=== PATIENT | female | born 1965 ===

== ENCOUNTER 2020-09-25 06:58 | Day surgery (SDC) | payer BC ==
[~2020-09-25 06:58] MED LIST: Midazolam 1 MG/ML 2 ML SDV ONE; fentaNYL 100 MCG/2 ML SDV ONE
[2020-09-25] MEDS ORDERED: Midazolam 1 MG/ML 2 ML SDV IV ONE ×10 (06:59→07:57)
[2020-09-25] MEDS ORDERED: fentaNYL 100 MCG/2 ML SDV IV ONE ×5 (06:59→07:58)
[2020-09-25] MEDS ORDERED: Dextrose 5%-0.45% NaCl 1,000 ML IV SCH (07:00)
[2020-09-25] MEDS ORDERED: Midazolam 1 MG/ML 2 ML SDV ONE (07:57)
--- NOTE | 2020-09-25 11:36 | OR ---
DATE: 09/25/2020 PREOPERATIVE DIAGNOSIS: Positive Cologuard test for screening colonoscopy. POSTOPERATIVE DIAGNOSIS: Positive Cologuard test for screening colonoscopy. PROCEDURE: Total colonoscopy. ANESTHESIA: Conscious sedation with IV Versed and fentanyl. SPECIMEN: None. OPERATIVE FINDINGS: Normal colonoscopy except for some distal melanosis coli, which is of no consequence. INDICATION FOR PROCEDURE: This 55-year-old female referred by Cynthia Portillo for evaluation of need for screening colonoscopy and a positive Cologuard test. PROCEDURE IN DETAIL: After adequate preparation, a colonoscope was inserted into the rectum. This was easily passed all the way to the cecum. Confirmation of the cecum was made by visualization of the ileocecal valve and palpation in the right lower quadrant. The bowel prep was good. On withdrawal of the scope, there were no masses, polyps, bleeding sites, colitis, or diverticula. 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 No other abnormalities were noted. Air was suctioned from the colon and the scope removed. [facility] /[id number]
[2020-09-25 13:49] VITALS: BP 137/75; PULSE 79
== END 2020-09-25 09:30 | disposition home or self-care (01) ==
LOC: DL.ENDO 06:58
PROVIDERS: ATTEND Surgery
DX: K63.89 Other specified diseases of intestine (principal); Z01.812 Encounter for preprocedural laboratory examination; Z20.822 Contact with and (suspected) exposure to COVID-19; E66.01 Morbid (severe) obesity due to excess calories; Z68.43 Body mass index [BMI] 50.0-59.9, adult; Z98.84 Bariatric surgery status; Z98.890 Other specified postprocedural states
CPT/HCPCS: 45378; 87635; J2250; J3010; J7042; U0002

== ENCOUNTER 2021-12-11 16:18 | Emergency (ER) | payer BC ==
[2021-12-11] MEDS ORDERED: fentaNYL 100 MCG/2 ML SDV IV ONE (16:19)
[2021-12-11] MEDS ORDERED: Sodium Chloride 0.9% 10 ML Syringe IV ONE (16:19)
[2021-12-11] MEDS ORDERED: Acetaminophen/HYDROcodone 325-5 MG Tab PO ONE (16:19)
[2021-12-11] MEDS ORDERED: Propofol 200 MG/20 ML SDV IV ONE (16:19)
[2021-12-11] MEDS ORDERED: Sodium Chloride 0.9% 10 ML Syringe FLUSH PRN (17:19)
[2021-12-11] MEDS ORDERED: fentaNYL 100 MCG/2 ML SDV IVPUSH ONE (17:19)
[2021-12-11] MEDS ORDERED: Ondansetron 4 MG/2 ML SDV IV ONE (17:19)
[2021-12-11 17:27] VITALS: BP 130/67; PULSE 88
[2021-12-11] MEDS ORDERED: Acetaminophen/HYDROcodone 325-5 MG Tab ONE (17:51)
== END 2021-12-11 19:15 | disposition home or self-care (01) ==
LOC: DL.ED 16:18
DX: S52.501A Unspecified fracture of the lower end of right radius, initial encounter for closed fracture (principal); E03.9 Hypothyroidism, unspecified; E66.9 Obesity, unspecified; Z68.43 Body mass index [BMI] 50.0-59.9, adult; Z79.899 Other long term (current) drug therapy; Z90.49 Acquired absence of other specified parts of digestive tract; W10.9XXA Fall (on) (from) unspecified stairs and steps, initial encounter
CPT/HCPCS: 01820; 25605; 73100-RT; 96374; 96375; 99152; 99153; 99283-25; A9270-GY; J2405; J2704; J3010; J3490

== ENCOUNTER 2021-12-28 18:12 | Emergency (ER) | payer BC ==
[2021-12-28] MEDS ORDERED: Lidocaine 1% 30 ML SDV ONE (19:21)
[2021-12-28 19:27] LABS: ANION GAP 13.9 mEq/L (7-13); CHLORIDE,CL 106 mmol/L (98-107); SODIUM,NA 142 mmol/L (136-145)
[2021-12-28] MEDS ORDERED: Lidocaine 1% 30 ML SDV INJECT ONE (19:28)
[2021-12-28] MEDS ORDERED: Ondansetron 4 MG/2 ML SDV IVPUSH ONE (19:32)
[2021-12-28] MEDS ORDERED: Ondansetron 4 MG/2 ML SDV ONE (19:33)
[2021-12-28] MEDS ORDERED: Sodium Chloride 0.9% 1,000 ML IV ONE (19:33)
[2021-12-28] MEDS ORDERED: HYDROmorphone 0.5 MG/0.5 ML Syringe IVPUSH ONE (19:54)
[2021-12-28] MEDS ORDERED: Metoclopramide 10 MG/2 ML SDV IVPUSH ONE (20:43)
[2021-12-28] MEDS ORDERED: Acetaminophen 500 MG Tab PO ONE (20:44)
[2021-12-28] MEDS ORDERED: cefTRIAXone 2 GM in Sodium Chloride 0.9% 100 ML IV ONE (21:03)
[2021-12-28] MEDS ORDERED: Vancomycin 2 GM in Sodium Chloride 0.9% 500 ML IV ONE (21:05)
[2021-12-28] MEDS ORDERED: Dexamethasone 4 MG/ML SDV IVPUSH ONE (21:15)
[2021-12-28] MEDS ORDERED: Ampicillin 2 GM in Sodium Chloride 0.9% 100 ML IV ONE (22:04)
[2021-12-28] MEDS ORDERED: Ampicillin 2 GM Vial ONE (22:09)
[2021-12-28 22:26] VITALS: BP 138/67; PULSE 92
== END 2021-12-28 22:58 ==
LOC: DL.ED 18:12
DX: G00.9 Bacterial meningitis, unspecified (principal); B96.89 Other specified bacterial agents as the cause of diseases classified elsewhere; E03.9 Hypothyroidism, unspecified; E66.9 Obesity, unspecified; Z79.899 Other long term (current) drug therapy; Z20.822 Contact with and (suspected) exposure to COVID-19; Z68.43 Body mass index [BMI] 50.0-59.9, adult
CPT/HCPCS: 36415; 80053; 82945; 83605; 83735; 84145; 84157; 85025; 85610; 86140; 87040; 87070; 87205; 87635; 89050; 96365; 96367; 96375; 99285; A9270; J0290; J0696; J1100; J1170; J2405; J2765; J3370; J3490; J7030; J7040; U0002